=== PATIENT | female | born 1935 | race Caucasian/White ===

== ENCOUNTER 2017-05-01 17:54 | Emergency (ER) | payer MEDICARE ==
[~2017-05-01] VITALS: Ht 152.4 cm; Wt 39.9 kg
[2017-05-01] MEDS ORDERED: MECLIZINE HCL25 MG PO (21:00)
--- NOTE | 2017-05-03 08:05 | EKG ---
[facility] [address] [facility] [place] [address] Signed Normal sinus rhythm Nonspecific ST and T wave abnormality Abnormal ECG No previous ECGs available Confirmed by OSMAN PHELPS MD ([id number] on 05/03/2017 8:04:59 AM Electronically Signed By: OSMAN PHELPS MD 05/03/17 0805 PATIENT NAME: YRIS ANDERSON Electrocardiogram DATE OF : 37 PHYSICIAN: OSMAN PHELPS MD REPORT #: [id number] REPORT IS CONFIDENTIAL AND NOT TO BE RELEASED WITHOUT AUTHORIZATION
== END 2017-05-01 21:34 | disposition home or self-care (01) ==
LOC: ED 17:54
DX: K52.9 Noninfective gastroenteritis and colitis, unspecified (principal)
CPT/HCPCS: 80053; 81001; 82150; 83690; 84484; 85025; 93005; 93010; 96361; 96374; 96375; 96376; 99283; J2405; J7030

== ENCOUNTER 2017-12-13 12:34 | Emergency (ER) | payer MEDICARE, OTHER ==
[~2017-12-13] VITALS: Ht 152.4 cm; Wt 39.9 kg
[~2017-12-13 12:34] MED LIST: MECLIZINE HCL25 MG PO
[2017-12-13] MEDS ORDERED: ZOFRAN ODT4 MG PO (15:15)
--- NOTE | 2017-12-14 13:08 | EKG ---
[facility] [address] [facility] [place] [address] Signed Normal sinus rhythm Normal ECG When compared with ECG of 01-MAY-2017 18:25, Nonspecific T wave abnormality no longer evident in Inferior leads Nonspecific T wave abnormality no longer evident in Lateral leads Confirmed by OSMAN PHELPS MD ([id number]) on 12/14/2017 1:08:17 PM Electronically Signed By: OSMAN PHELPS MD 12/14/17 1308 PATIENT NAME: MONICAYRIS PIYUSH Electrocardiogram DATE OF : 37 PHYSICIAN: OSMAN PHELPS MD REPORT #: [id number] REPORT IS CONFIDENTIAL AND NOT TO BE RELEASED WITHOUT AUTHORIZATION
== END 2017-12-13 15:26 | disposition home or self-care (01) ==
LOC: ED 12:34
DX: R42 Dizziness and giddiness (principal)
CPT/HCPCS: 70551; 80053; 84484; 85025; 93005; 93010; 99284